=== PATIENT | male | born 1980 | race Caucasian/White ===

== ENCOUNTER 2023-06-17 06:35 | Emergency (ER) | payer OTHER, MEDICARE, SELFPAY ==
[2023-06-17 06:38] VITALS: BP 139/93
[2023-06-17 07:16] LABS: % Basophils 0.2 % (0-2); % Eosinophils 0.1 % (0-6); % Immature Granulocytes 0.4 % (0-0.5); % Lymphocytes 15.1 % (20.5-51.1); % Monocytes 7.8 % (1.7-9.3); % Neutrophils 76.4 % (42.2-75.2); Absolute Immature Granulocytes 0.1 10^3/uL (0-0.05); Absolute Neutrophils 10.2 10^3/uL (1.4-6.5); Hemoglobin 15.4 g/dL (13.0-18.0); Mean Corpuscular Hgb 29.3 pg (27.0-31.0); Mean Corpuscular Volume 83.7 fL (80.0-94.0); Mean Platelet Volume 8.5 fL (7.4-10.4); Nucleated Red Blood Cells % 0 % (-); Platelet Count 259 10^3/uL (130-400); Red Blood Cell Count 5.26 10^6/uL (4.70-6.10); Red Cell Dist. Width 12.7 % (11.5-14.5); White Blood Cell Count 13.4 10^3/uL (4.8-10.8)
[2023-06-17 07:36] LABS: ALT (SGPT) 11 U/L (0-50); AST (SGOT) 22 U/L (17-59); Albumin 4.5 g/dl (3.5-5.0); Alkaline Phosphatase 65 U/L (38-126); Blood Urea Nitrogen 16 mg/dl (9-20); Calcium 9.4 mg/dl (8.4-10.2); Carbon Dioxide 22 mmol/L (22-30); Chloride 110 mmol/L (98-107); Glucose 117 mg/dl (70-99); Lipase 357 U/L (23-300); Sodium 138 mmol/L (135-145); Total Bilirubin 0.7 mg/dl (0.2-1.3); Total Protein 7.5 g/dl (6.3-8.2); eGFR > 60.00
--- NOTE | 2023-06-17 07:45 | ED.GENMED ---
History of Present Illness
General
Chief Complaint: Flank Pain
Source: patient
Exam Limitations: none
Time Seen by Provider: 06/17/23 06:59
Travel History
Have you had any contact with someone who has COVID-19?: No
Do you have any symptoms of coronavirus? Fever > 100 degrees, chills, cough, shortness of breath, sore throat, loss of taste or smell, muscle aches, or headache?: No
History of Present Illness
History of Present Illness:
42-year-old male presents with intermittent epigastric right upper quadrant and right flank pain over the past several days. This is getting worse with time. It is worse with eating. He is nauseous without vomiting. He is on Wegovy for weight
loss. He recently was changed from Ozempic to Wegovy. He was off of the medication for 3 months and started several weeks ago. Pain is not pleuritic. Denies chest pain shortness of breath or fever. She denies any blood in the stool. No prior
abdominal surgical history. No other complaints at this time
Phy Exam
Physical Exam
Physical Exam:
General: Well-appearing male no acute respiratory distress
HEENT: Normocephalic atraumatic
Heart: Regular rate and rhythm no murmurs
Lungs: Clear no wheeze or rales
Abdomen: Soft mildly tender to the epigastric and right upper quadrant. No guarding or rebound normal bowel sounds no significant costovertebral angle tenderness
Extremities: No cyanosis
Course
Orders/Labs/Results
Orders:
Orders
06/17/23 07:09
CMP [Comprehensive Metabolic Panel] Urgent
Complete Blood Count/With Diff Urgent
Lipase Urgent
06/17/23 07:12
0.9% Sodium Chloride 1000 ml [Nss] 1,000 ml IV BOLUS
US Abdomen Complete/Upper Urgent
Comment:
Reason For Exam: RUQ pain
06/17/23 08:45
CT Abd/pel Without Iv Or Oral Urgent
Comment:
Reason For Exam: right flank pain
06/17/23 09:10
Ketorolac [Toradol] 15 mg IV NOW STA
06/17/23 09:30
Urinalysis Reflex To Culture Urgent
Date Specimen was Collected: 06/17/23
Time Specimen was Collected: 09:24
Abnormal Lab Results
06/17/23
07:09
WBC 13.4 H 10^3/uL
(4.8-10.8)
Abs Immat Gran (auto) 0.1 H 10^3/uL
(0-0.05)
Absolute Neuts (auto) 10.2 H 10^3/uL
(1.4-6.5)
Absolute Monos (auto) 1.0 H 10^3/uL
(0.1-0.6)
Neutrophils % 76.4 H %
(42.2-75.2)
Lymphocytes % 15.1 L %
(20.5-51.1)
Chloride 110 H mmol/L
(98-107)
Creatinine 1.4 H mg/dL
(0.7-1.3)
Glucose 117 H mg/dl
(70-99)
Lipase 357 H U/L
(23-300)
06/17/23 07:09
06/17/23 07:09
Vital Signs
Initial and Last Documented VS:
Initial Vital Signs
Temp Pulse Resp BP Pulse Ox
98.5 F 66 20 139/93 96
06/17/23 06:38 06/17/23 06:38 06/17/23 06:38 06/17/23 06:38 06/17/23 06:38
Last Documented Vital Signs
Temp Pulse Resp BP Pulse Ox
98.5 F 67 15 151/84 98
06/17/23 06:38 06/17/23 08:29 06/17/23 08:29 06/17/23 11:00 06/17/23 11:00
MDM/Problems Addressed
Differential Diagnosis Includes:
Abdominal pain. Consider biliary colic versus renal colic versus pancreatitis
Check labs including lipase. Ultrasound abdomen pending. Fluids ordered urinalysis pending.
*Critical Care Note
Total Time (30-74mins, 75-104mins- exclusive of procedures): Not Applicable
Update Note
Update Note:
Ultrasound shows potential dilation of the right renal collecting system but no identifiable stone seen. Gallbladder is normal. Liver functions normal lipase slightly elevated which may be related to the Wegovy. However CT of the abdomen was
performed and demonstrates a 4 mm stone at the right UVJ with moderate hydronephrosis. No infection in the urine. Patient comfortable after Toradol here. Recommended fluids Tylenol and Flomax with urology follow-up. No indication for any
admission at this time
ED Attending Note
-
Portions of this chart may have been created with voice recognition software.� Occasional wrong word or��sound alike� substitutions may have occurred due to the inherent limitations of voice recognition software.
Discharge Plan
Departure
Patient Disposition: Home (Routine Discharge)
Date of Disposition: 06/17/23
Time of Disposition: 11:08
Patient with high blood pressure during this ER visit?: No
Discharge Problem:
Kidney stone
Instructions: Kidney Stones (DC)
Prescriptions:
New
tamsulosin [Flomax] 0.4 mg capsule
0.4 mg PO DAILY Qty: 10 0RF
Referrals:
Christian Ro MD [Active] -
Jonathan Goodman IV, MD [Family Provider] -
Activity Restrictions/Additional Instructions:
Continue drinking plenty of fluids. Use Tylenol if needed for pain. Use Flomax as directed. Return for worsening symptoms including pain vomiting or fever otherwise follow-up with urology
Interventions
Interventions:
*Risk Screen - Suicide Last Done: 06/17/23 06:47
*General Assessment Last Done: 06/17/23 06:38
*Neglect/Abuse Screening Last Done: 06/17/23 06:38
ED- Fall Risk Assessment Last Done: 06/17/23 06:38
*ED COVID-19 Vaccine History Last Done: 06/17/23 06:38
ZB-Mtnpmq-Rdamzxbmei Assessment Last Done: 06/17/23 07:08
ED-Male Genitourinary Assessment Last Done: 06/17/23 07:08
Discharge Date and Time
Print Language: INDONESIAN
[2023-06-17 08:25] VITALS: BP 153/90
[2023-06-17 08:29] VITALS: BP 153/90
[2023-06-17] MEDS: NSS 1000 IV (08:29)
[2023-06-17 09:00] VITALS: BP 161/90
[2023-06-17] MEDS: TORADOL 15 MG IV (09:15)
[2023-06-17 10:01] LABS: Urine Albumin Negative (Neg - Trace); Urine Bilirubin Negative (Negative); Urine Character Clear (Clear); Urine Color Yellow; Urine Glucose Negative (Negative); Urine Ketone Negative (Negative); Urine Leukocyte Negative (Negative); Urine Nitrite Negative (Negative); Urine Occult Blood Negative (Negative); Urine Urobilinogen Negative (Neg - 1+)
[2023-06-17 10:33] VITALS: BP 142/79
[2023-06-17 11:00] VITALS: BP 151/84
== END 2023-06-17 11:26 | disposition home or self-care (01) ==
LOC: EMR 06:35
PROVIDERS: Physician Assistant; EMERGENCY PHYSICIAN Emergency Medicine; FAMILY PHYSICIAN Family Medicine
DX: N13.2 Hydronephrosis with renal and ureteral calculous obstruction (principal)
CPT/HCPCS: 99285; 96374; 96361; 74176; 76700; 80053; 81003; 83690; 85025

== ENCOUNTER 2023-10-06 13:43 | Emergency (ER) | payer OTHER, MEDICARE, SELFPAY ==
[2023-10-06 13:50] VITALS: BP 156/107
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
[2023-10-06 16:20] VITALS: BP 160/92
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
[2023-10-06] MEDS: FLEXERIL 10 MG PO (18:17)
== END 2023-10-06 18:19 | disposition home or self-care (01) ==
LOC: EMR 13:43
PROVIDERS: EMERGENCY PHYSICIAN Emergency Medicine; FAMILY PHYSICIAN Family Medicine
DX: R51.9 Headache, unspecified (principal); S13.4XXA Sprain of ligaments of cervical spine, initial encounter; X58.XXXA Exposure to other specified factors, initial encounter; H40.9 Unspecified glaucoma; Z98.1 Arthrodesis status
CPT/HCPCS: 99284; 70450; 72125